=== PATIENT | female | born 1970 | race Caucasian/White ===

== ENCOUNTER 2024-07-11 11:42 | Emergency (ER) | payer OTHER, SELFPAY ==
[2024-07-11 11:48] VITALS: BP 153/84
[2024-07-11 12:05] VITALS: BMI 20.9
--- NOTE | 2024-07-11 12:17 | ED.GENMED ---
History of Present Illness
General
Chief Complaint: Chest Pain
Source: patient
Exam Limitations: none
Time Seen by Provider: 07/11/24 11:56
History of Present Illness
History of Present Illness:
54-year-old female presents with onset of shaking chills rigors nausea vomiting and diarrhea this morning. After vomiting several times she developed chest discomfort. No known sick contacts. She is healthy otherwise. She took a COVID test at
home which was negative.
Phy Exam
Physical Exam
Physical Exam:
General: Well-appearing respiratory distress
HEENT: Normocephalic atraumatic
Heart: Regular rate and rhythm no murmurs
Lungs: Clear no wheeze
Abdomen soft nontender nondistended no guarding rebound normal bowel
Extremities: No cyanosis or
Scores
Heart Score for Chest Pain Patients
STEMI patient?: No
History: Slightly or Non-Suspicious
ECG: Normal
Age: >45 - <65 years
Risk Factors: No Risk Factors
Troponin: </= Normal Limit
Heart Score for Chest Pain Patients: 1
Heart Score Risk: 2.5% MACE over next 6 weeks
Course
Orders/Labs/Results
Orders:
Orders
07/11/24 11:43
Electrocardiogram (*1) Urgent
Reason for Study: Chest Pain
EKG- Treatment ONCE
07/11/24 12:13
CMP [Comprehensive Metabolic Panel] Urgent
COVID-19 Antigen Urgent
Source: Nasal Swab
Complete Blood Count/With Diff Urgent
Troponin I Urgent
07/11/24 12:15
Influenza A+B Rapid Molecular Urgent
MINNA Source: Nasal Swab
Specimen Description:
07/11/24 12:16
0.9% Sodium Chloride 1000 ml [Nss] 1,000 ml IV BOLUS
Ondansetron Injectable [Zofran] 4 mg IV NOW STA
Abnormal Lab Results
07/11/24
12:13
WBC 18.9 H 10^3/uL
(4.8-10.8)
Abs Immat Gran (auto) 0.1 H 10^3/uL
(0-0.05)
Absolute Neuts (auto) 16.2 H 10^3/uL
(1.4-6.5)
Absolute Monos (auto) 0.8 H 10^3/uL
(0.1-0.6)
Neutrophils % 85.8 H %
(42.2-75.2)
Lymphocytes % 9.2 L %
(20.5-51.1)
BUN 18 H mg/dl
(7-17)
Glucose 130 H mg/dl
(70-99)
Calcium 10.3 H mg/dl
(8.4-10.2)
07/11/24 12:13
07/11/24 12:13
Vital Signs
Initial and Last Documented VS:
Initial Vital Signs
Temp Pulse Resp BP Pulse Ox
98.7 F 65 18 153/84 100
07/11/24 11:48 07/11/24 11:48 07/11/24 11:48 07/11/24 11:48 07/11/24 11:48
Last Documented Vital Signs
Temp Pulse Resp BP Pulse Ox
98.7 F 54 13 113/76 100
07/11/24 11:48 07/11/24 13:00 07/11/24 13:00 07/11/24 13:00 07/11/24 13:00
MDM/Problems Addressed
Differential Diagnosis Includes:
Chills with nausea vomiting and diarrhea. Suspect viral illness. She also was complaining of chest discomfort. Unlikely to be ACS given presentation but will check troponin and EKG. No prior abdominal surgical history. Do not suspect bowel
obstruction
This is an acute problem
Considered imaging of abdomen however given benign exam and lack of tenderness will hold off
COVID and flu test also pending
Chronic conditions affecting care:
none
*Critical Care Note
Total Time (30-74mins, 75-104mins- exclusive of procedures): Not Applicable
Update Note
Update Note:
Patient feeling much better after fluids and Zofran. She has leukocytosis but likely has a product of acute vomiting. Reassessment provides her to feel much more comfortable rigors are gone. COVID and flu negative troponin negative. Suspect
underlying viral illness. Zofran prescribed to her pharmacy. Stable for discharge.
ED Attending Note
-
Portions of this chart may have been created with voice recognition software.� Occasional wrong word or��sound alike� substitutions may have occurred due to the inherent limitations of voice recognition software.
Discharge Plan
Departure
Patient Disposition: Home (Routine Discharge)
Date of Disposition: 07/11/24
Time of Disposition: 14:02
Patient with high blood pressure during this ER visit?: No
Discharge Problem:
Viral illness
Instructions: Nausea and Vomiting, Adult (DC)
Prescriptions:
New
ondansetron 4 mg tablet,disintegrating
4 mg PO Q8H PRN (Reason: nausea and vomiting) Qty: 10 0RF
No Action
amoxicillin-pot clavulanate 875-125 mg tablet
1 tab PO BID 7 Days Qty: 14 0RF
ondansetron 4 mg tablet,disintegrating
4 mg PO Q8H PRN (Reason: nausea and vomiting) Qty: 7 0RF
Referrals:
Joni Rodriguez DO [Family Provider] -
Activity Restrictions/Additional Instructions:
Drink plenty of liquids. Use Zofran if needed for nausea. Return here for worsening symptoms otherwise follow-up with family doctor
Interventions
Interventions:
*Risk Screen - Suicide Last Done: 07/11/24 11:48
*General Assessment Last Done: 07/11/24 11:48
*Neglect/Abuse Screening Last Done: 07/11/24 11:48
ED- Fall Risk Assessment Last Done: 07/11/24 12:17
*ED COVID-19 Vaccine History Last Done: 07/11/24 12:05
YK-Orazpb-Xysbcebgfl Assessment Last Done: 07/11/24 12:16
ED- Cardiac Assessment Last Done: 07/11/24 12:16
ED- Neurological Assessment Last Done: 07/11/24 12:16
Discharge Date and Time
Print Language: SINHALA
[2024-07-11] MEDS: ZOFRAN 4 MG IV (12:20)
[2024-07-11] MEDS: NSS 1000 IV (12:20)
[2024-07-11 12:34] LABS: % Basophils 0.2 % (0-2); % Eosinophils 0.3 % (0-6); % Immature Granulocytes 0.4 % (0-0.5); % Lymphocytes 9.2 % (20.5-51.1); % Monocytes 4.1 % (1.7-9.3); % Neutrophils 85.8 % (42.2-75.2); Absolute Eosinophils 0.1 10^3/uL (0-0.7); Absolute Immature Granulocytes 0.1 10^3/uL (0-0.05); Absolute Lymphocytes 1.7 10^3/uL (1.2-3.4); Absolute Monocytes 0.8 10^3/uL (0.1-0.6); Absolute Neutrophils 16.2 10^3/uL (1.4-6.5); Hematocrit 46.1 % (37.0-47.0); Hemoglobin 15.7 g/dL (12.0-16.0); Mean Corp Hgb Conc. 34.1 g/dL (33.0-37.0); Mean Corpuscular Hgb 29.4 pg (27.0-31.0); Mean Corpuscular Volume 86.3 fL (81.0-99.0); Mean Platelet Volume 8.3 fL (7.4-10.4); Nucleated Red Blood Cells % 0 %; Platelet Count 356 10^3/uL (130-400); Red Blood Cell Count 5.34 10^6/uL (4.20-5.40); Red Cell Dist. Width 14.1 % (11.5-14.5); White Blood Cell Count 18.9 10^3/uL (4.8-10.8)
[2024-07-11 12:40] LABS: COVID-19 Antigen Negative (Negative)
[2024-07-11 12:56] LABS: ALT (SGPT) 21 U/L (0-35); AST (SGOT) 23 U/L (14-36); Albumin 4.8 g/dl (3.5-5.0); Alkaline Phosphatase 85 U/L (38-126); Blood Urea Nitrogen 18 mg/dl (7-17); Calcium 10.3 mg/dl (8.4-10.2); Carbon Dioxide 23 mmol/L (22-30); Chloride 104 mmol/L (98-107); Estimated Creatinine Clearance 91 ml/min; Glucose 130 mg/dl (70-99); Potassium 4.5 mmol/L (3.5-5.1); Sodium 142 mmol/L (135-145); Total Bilirubin 0.6 mg/dl (0.2-1.3); Total Protein 7.3 g/dl (6.3-8.2); eGFR > 60.00
[2024-07-11 13:00] VITALS: BP 113/76
[2024-07-11 13:04] LABS: Troponin I < 0.012 ng/ml
[2024-07-11 14:00] VITALS: BP 114/97
== END 2024-07-11 14:24 | disposition home or self-care (01) ==
LOC: EMR 11:42
PROVIDERS: EMERGENCY PHYSICIAN Student in an Organized Health Care Education/Training Program; FAMILY PHYSICIAN Family Medicine
DX: B34.9 Viral infection, unspecified (principal); R11.2 Nausea with vomiting, unspecified; R19.7 Diarrhea, unspecified; R07.89 Other chest pain; Z11.52 Encounter for screening for COVID-19
CPT/HCPCS: 99284; 96374; 96361; 80053; 84484; 85025; 87502; 87811; 93005

== ENCOUNTER 2025-08-26 15:05 | Emergency (ER) | payer BC, SELFPAY ==
[2025-08-26 15:09] VITALS: BP 109/76
--- NOTE | 2025-08-26 15:15 | ED.GENMED ---
History of Present Illness
General
Chief Complaint: Chest Pain
Source: patient
Exam Limitations: none
Time Seen by Provider: 08/26/25 15:14
Nursing documentation reviewed up to this point in time: agreed with
History of Present Illness
History of Present Illness:
55-year-old female with no clinically significant past medical history presents for chest pain. States 3 hours ago, after having her coffee and drinking water, at home, getting ready for work, had sudden onset of severe mid chest, non radiating
burning pain. Took Tums, vomited. Took a Baby ASA, then her gave her Omeprazole and after about an hour completely subsided and has not returned. Denies SOB, lightheadedness.
Past History
Past History
ED Past Medical History: Psychiatric (Depression takes Paxil 40 mg)
ED Past Surgical History: Gynecological and Orthopedic
Social History
Tobacco: Non-smoker
Alcohol: None
Drug: Marijuana (medical)
Personal:
Living: with family
Employment: Employed
Review of Systems
Review of Systems
Allergies reviewed?: Yes
All Other Systems: ROS reviewed and negative except as documented in HPI and ROS
Phy Exam
Physical Exam
Physical Exam:
GENERAL: No acute distress. A&Ox3.
CONSTITUTIONAL: Afebrile.
EYES: clear, conjunctivae normal
ENMT: moist mucus membranes, Pharynx nl
RESPIRATORY: Regular respirations, nonlabored, lungs clear.
CARDIOVASCULAR: Regular rate and rhythm, no murmurs, no rubs.
GI: Soft, nontender, normal BS
MUSCULOSKELETAL: Moves with ease. Well perfused.
SKIN: Warm, dry, pink
PSYCH: Normal mood and affect. Well kept, interactive and appropriate
NEUROLOGIC: Awake, alert and oriented. No focal neurological deficits
Scores
Heart Score for Chest Pain Patients
STEMI patient?: Not applicable
Course
Orders/Labs/Results
Orders:
Orders
08/26/25 15:06
ECG [Electrocardiogram (*1)] Urgent
Reason for Study: Chest Pain
EKG- Treatment ONCE
08/26/25 15:24
CR Chest - 2 Views Urgent
Comment:
Reason For Exam: chest pain
08/26/25 15:29
Complete Blood Count/With Diff Urgent
Comprehensive Metabolic Panel Urgent
Troponin I Urgent
Abnormal Lab Results
08/26/25
15:29
Absolute Monos (auto) 0.7 H 10^3/uL
(0.1-0.6)
Glucose 110 H mg/dl
(70-99)
08/26/25 15:29
08/26/25 15:29
Vital Signs
Initial and Last Documented VS:
Initial Vital Signs
Temp Pulse Resp BP Pulse Ox
97.8 F 78 18 109/76 97
08/26/25 15:09 08/26/25 15:09 08/26/25 15:09 08/26/25 15:09 08/26/25 15:09
Last Documented Vital Signs
Temp Pulse Resp BP Pulse Ox
97.8 F 60 20 112/72 97
08/26/25 15:09 08/26/25 17:00 08/26/25 17:00 08/26/25 17:00 08/26/25 15:17
MDM/Problems Addressed
Differential Diagnosis Includes:
GERD, ACS
MDM/Problems Addressed:
55-year-old female with no clinically significant past medical history presents for chest pain. States 3 hours ago, after having her coffee and drinking water, at home, getting ready for work, had sudden onset of severe mid chest, non radiating
burning pain. Took Tums, vomited. Took a Baby ASA, then her gave her Omeprazole and after about an hour completely subsided and has not returned. Denies SOB, lightheadedness.
EKG: NSR
CBC normal CMP normal
Troponin within normal limits
5:15 PM:
Chest x-ray NAD
Patient reassured, instructed to continue omeprazole referral to GI as needed,
Stable for discharge.
*Pulse Oximetry
SaO2: 97
Oxygen Mode of Delivery: Room air
Patient hypoxic: no
*EKG
EKG Intrepretation Date: 08/26/25
Interpretation: normal
Heart Rate: 71
Rate: normal
Rhythm: sinus
[place]: normal axis
Interval: normal interval
QRS Pattern: normal QRS
Ischemia: no ischemia
*Critical Care Note
Total Time (30-74mins, 75-104mins- exclusive of procedures): Not Applicable
ED Attending Note
-
Portions of this chart may have been created with voice recognition software.� Occasional wrong word or��sound alike� substitutions may have occurred due to the inherent limitations of voice recognition software.
Discharge Plan
Departure
Patient Disposition: Home (Routine Discharge)
Date of Disposition: 08/26/25
Time of Disposition: 17:21
Patient with high blood pressure during this ER visit?: No
Condition: Good
Discharge Problem:
Atypical chest pain
Instructions: Chest Pain That Is Not Caused by the Heart (DC), Acid Reflux and GERD in Adults (DC)
Prescriptions:
No Action
amoxicillin-pot clavulanate 875-125 mg tablet
1 tab PO BID 7 Days Qty: 14 0RF
ondansetron 4 mg tablet,disintegrating
4 mg PO Q8H PRN (Reason: nausea and vomiting) Qty: 7 0RF
ondansetron 4 mg tablet,disintegrating
4 mg PO Q8H PRN (Reason: nausea and vomiting) Qty: 10 0RF
Referrals:
Bigg Wraren MD [Active, Gastroenterology] - As needed
UNKNOWN - PT DOES,NOT KNOW [Unknown Provider]
Activity Restrictions/Additional Instructions:
As we discussed, nothing worrisome in your workup here today, specifically no indication of heart attack
Continue Omeprazole 10 mg daily and may increase to 20 mg daily if needed.
See the GI doctor if not improving.
Interventions
Interventions:
*Risk Screen - Suicide Last Done: 08/26/25 15:34
*General Assessment Last Done: 08/26/25 15:34
*Neglect/Abuse Screening Last Done: 08/26/25 15:34
*ED- Fall Risk Assessment Last Done: 08/26/25 15:34
*ED COVID-19 Vaccine History Last Done: 08/26/25 15:34
*ED Influenza Vaccine History Last Done: 08/26/25 15:34
*Nursing Disposition Last Done: 08/26/25 17:38
ED- Cardiac Assessment Last Done: 08/26/25 15:34
Discharge Date and Time
Discharge Date/Time: 08/26/25 17:38
Print Language: SAMI
[2025-08-26 15:32] VITALS: BMI 23.0
[2025-08-26 15:44] LABS: Hematocrit 39.3 % (37.0-47.0); Hemoglobin 13.0 g/dL (12.0-16.0); Mean Corp Hgb Conc. 33.1 g/dL (33.0-37.0); Mean Corpuscular Volume 83.4 fL (81.0-99.0); Nucleated Red Blood Cells % 0 %; Platelet Count 313 10^3/uL (130-400); Red Cell Dist. Width 13.4 % (11.5-14.5)
[2025-08-26 16:00] VITALS: BP 97/70
[2025-08-26 16:07] LABS: ALT (SGPT) 14 U/L (0-35); AST (SGOT) 17 U/L (14-36); Albumin 3.9 g/dl (3.5-5.0); Alkaline Phosphatase 82 U/L (38-126); Blood Urea Nitrogen 10 mg/dl (7-17); Calcium 9.0 mg/dl (8.4-10.2); Carbon Dioxide 28 mmol/L (22-30); Chloride 106 mmol/L (98-107); Estimated Creatinine Clearance 90 ml/min; Glucose 110 mg/dl (70-99); Potassium 3.9 mmol/L (3.5-5.1); Sodium 135 mmol/L (135-145); Total Protein 6.6 g/dl (6.3-8.2); eGFR > 60.00
[2025-08-26 16:19] LABS: Troponin I < 0.012 ng/ml
[2025-08-26 17:00] VITALS: BP 112/72
== END 2025-08-26 17:38 | disposition home or self-care (01) ==
LOC: EMR 15:05
PROVIDERS: Registered Nurse; EMERGENCY PHYSICIAN Emergency Medicine; FAMILY PHYSICIAN Family Medicine
DX: R07.89 Other chest pain (principal); F32.A Depression, unspecified
CPT/HCPCS: 99284; 71046; 80053; 84484; 85025; 93005